=== PATIENT | male | born 1975 | race Caucasian/White ===

== ENCOUNTER → 2019-01-20 07:48 | Outpatient (CLI) | payer OTHER, SELFPAY ==
--- NOTE | 2019-01-20 | DI.ECHO.S_ITS ---
[facility] +---------+ : : [address] : [address] : : : : [id number] : : : : Phone: [phone]---------+ Echocardiogram Report + + :Name: LUZ ELENA JIMENEZ Study Date: 01/20/2019 Height: 71 in : :[facility] Exam Location: [facility] Weight: 180 lb : : Gender: Male BSA: 2.0 m2 : :: 1975 Age: 43 yrs BP: 130/80 mmHg: :Reason For Study: CHF : : Performed By: Nadeen Page : :Referring: STEVE SUE : + + Interpretation Summary Normal both left and right ventricle size and function. The ejection fraction is 60-65%. Moderately dilated left atrium. Mildly dilated right atrium. No valvular abnormality. Procedure: A two-dimensional transthoracic echocardiogram with color flow and Doppler was performed. The study quality was technically adequate. There is no prior echocardiogram noted for this patient. The patient was in sinus bradycardia with heart rates between 52-59 bpm during the exam. Left Ventricle: The left ventricle is normal in size, wall thickness, and systolic function without any focal wall motion abnormalities. The ejection fraction is estimated to be 60-65%. Diastolic parameters suggest probable normal left ventricular diastolic function and normal filling pressures. Right Ventricle: The right ventricle is normal in size and function. Atria: The left atrium is moderately dilated. The right atrium is mildly dilated. There is no Doppler evidence for an interatrial shunt. Mitral Valve: The mitral valve is grossly normal. There is trace mitral regurgitation. Aortic Valve: The aortic valve is trileaflet. The aortic valve opens well. No aortic regurgitation is present. Tricuspid Valve: The tricuspid valve is normal in structure and function. There is trace tricuspid regurgitation. Right ventricular systolic pressure is estimated to be 18 mmHg plus the clinically estimated CVP which cannot be estimated on this exam. Pulmonic Valve: The pulmonic valve is not well visualized. There is trace pulmonic regurgitation. Great Vessels: The aortic root is normal size. The ascending aorta is normal in size. The aortic arch is normal in size. The pulmonary artery is not well visualized, but is probably normal size. The IVC does not appear dilated but does not appear to have respiratory collapse which suggests moderately high central venous pressure. Pericardium/ Pleura There is no pericardial effusion. There is no pleural effusion. MMode/2D Measurements & Calculations LVIDd: 4.6 cm LVOT diam: 2.2 cm LVIDs: 2.9 cm Ao root diam: 3.3 cm FS: 36.3 % asc Aorta Diam: 3.1 cm IVSd: 0.90 cm Ao Arch Diam (Prox Trans): 2.8 cm LVPWd: 0.98 cm LV marc. diameter/BSA (cm/m^2): 2.3 LV sys. diameter/BSA (cm/m^2): 1.5 LA A2 area: 25.8 cm2 RA long axis: 5.4 cm LA A4 area: 24.5 cm2 RA area: 21.1 cm2 LA length (vol): 6.0 cm RA vol: 70.2 ml LA vol: 89.4 ml RA : 34.8 ml/m2 LA vol index: 44.3 ml/m2 IVC diam: 1.9 cm RVD1 (basal): 4.2 cm RVD2 (mid): 3.8 cm Doppler Measurements & Calculations Ao V2 max: 127.0 cm/sec LVOT Max Johnny: 117.2 cm/sec Ao V2 mean: 90.3 cm/sec LV V1 max P.5 mmHg Ao max P.5 mmHg LV V1 VTI: 22.5 cm Ao mean P.5 mmHg MANA(I,D): 3.5 cm2 Ao V2 VTI: 24.0 cm MANA(V,D): 3.4 cm2 sev ratio: 0.94 MANA indexed to BSA (cm^2/m^2): 1.7 MV E max johnny: 94.7 cm/sec TR max johnny: 212.7 cm/sec MV A max johnny: 36.8 cm/sec TR max P.1 mmHg MV E/A: 2.6 PA V2 max: 80.3 cm/sec Med Peak E' Johnny: 10.2 cm/sec PA V2 mean: 59.2 cm/sec E/E' med: 9.3 PA mean P.5 mmHg Lat Peak E' Johnny: 11.8 cm/sec PA Accel Time: 0.13 sec E/E' lat: 8.1 E/e' average: 8.7 MV dec time: 0.17 sec MV P1/2t: 49.6 msec MV P1/2t max johnny: 95.1 cm/sec SV(LVOT): 82.9 ml MVA(P1/2t): 4.4 cm2 Electronically signed by: Jose De Jesus Mota on Reading Physician:01/20/2019 02:12 PM
== END ==
PROVIDERS: Visit Provider Physician Assistant
DX: I50.9 Heart failure, unspecified (principal)
CPT/HCPCS: 93306